=== PATIENT | female | born 1950 | race Caucasian/White ===

== ENCOUNTER 2021-07-25 10:22 | Day surgery (SDC) | payer MEDICARE, OTHER ==
[2021-07-16 16:00] LABS: BASOPHILS # (AUTO) 0.1 X10'3 (0-0.2); BASOPHILS % (AUTO) 0.9 % (0-1); EOSINOPHILS # (AUTO) 0.1 X10'3 (0-0.9); EOSINOPHILS % (AUTO) 2.4 % (0-6); LYMPHOCYTES # (AUTO) 1.3 X10'3 (1.1-4.8); LYMPHOCYTES % (AUTO) 21.6 % (21-51); MEAN CORPUSCULAR HEMOGLOBIN 33.4 PG (27.0-31.0); MEAN CORPUSCULAR HGB CONC 36.1 g/dL (33.0-36.5); MEAN CORPUSCULAR VOLUME 92.7 FL (78-98); MEAN PLATELET VOLUME 7.2 FL (7.4-10.4); MONOCYTES # (AUTO) 0.5 X10'3 (0-0.9); MONOCYTES % (AUTO) 9.1 % (2-12); NEUTROPHILS # (AUTO) 3.9 X10'3 (1.8-7.7); PRE OP HEMATOCRIT 31.7 % (35.0-45.0); PRE OP HEMOGLOBIN 11.4 g/dL (12.0-16.0); PRE OP PLATELET COUNT 268 X10'3 (140-440); RED BLOOD COUNT 3.42 X10'6 (4.20-5.60); RED CELL DISTRIBUTION WIDTH 12.5 % (11.5-14.5)
[2021-07-16 16:15] LABS: ALBUMIN 3.6 G/DL (3.4-5.0); ALBUMIN/GLOBULIN RATIO 0.9 (1.1-1.5); ALKALINE PHOSPHATASE 81 IU/L (46-116); BLOOD UREA NITROGEN 18 MG/DL (7-18); BUN/CREATININE RATIO 18.9 (6.6-38.0); CALCIUM 8.4 MG/DL (8.5-10.1); CHLORIDE 103 MMOL/L (99-107); CREATININE 0.95 MG/DL (0.40-0.90); PRE OP ALT 27 U/L (30-65); PRE OP ANION GAP 11 (8-16); PRE OP AST 18 U/L (10-37); PRE OP BILIRUB, TOTAL 0.4 MG/DL (0.0-1.0); PRE OP GLUCOSE 137 MG/DL (70-104); PRE OP SODIUM 137 MMOL/L (135-145); TOTAL CARBON DIOXIDE 23.5 MMOL/L (24-32); TOTAL PROTEIN 7.4 G/DL (6.4-8.2); eGFR 58 ML/MIN
[2021-07-16 16:53] LABS: PLATELET ESTIMATE NORMAL; SPHEROCYTES FEW
[2021-07-16 16:54] LABS: ELLIPTOCYTES FEW; SCHISTOCYTES FEW
[2021-07-16 16:55] LABS: LARGE PLATELETS FEW
[~2021-07-25] VITALS: Ht 165.1 cm; Wt 58.7 kg
[2021-07-25] VITALS (8 sets, daily range): BP systolic 120–140; BP diastolic 66–85
[~2021-07-25 10:22] MED LIST: PRAV20TA4 PO; cefazolin/dext.iso 2gm/50ml IV ONE; famotidine 20mg tablet PO ONE; ringers solution, lacted 1,000 ML IV SCH
[2021-07-25] MEDS ORDERED: bacitracin 15gm ointment TP ONE (14:36)
[2021-07-25] MEDS ORDERED: BUPIVAcaine/PF 2.5mg/ml (0.25%) 10ml vial ONE (14:36)
[2021-07-25] MEDS ORDERED: ondansetron/PF 4mg/2ml inj IV PRN (15:05)
[2021-07-25] MEDS ORDERED: ringers solution, lacted 1,000 ML IV SCH (15:05)
[2021-07-25] MEDS ORDERED: HYDROmorphone/PF 0.2 MG/ML SYRINGE IV PRN ×2 (15:05)
[2021-07-25] MEDS ORDERED: morphine 2 MG/ML inj. syringe IV PRN (15:05)
[2021-07-25] MEDS ORDERED: sevoflurane 250ml liquid IH ONE (15:09)
[2021-07-25] MEDS ORDERED: fentaNYL/PF 50MCG/1 ML 2ML syringe ONE (15:12)
[2021-07-25] MEDS ORDERED: dexamethasone sod phosphate 4mg/ml inj. ONE (15:30)
[2021-07-25] MEDS ORDERED: rocuronium 10mg/ml inj IV ONE (15:30)
[2021-07-25] MEDS ORDERED: LIDOcaine 2% (20mg/ml) 5ml vial ONE (15:30)
[2021-07-25] MEDS ORDERED: neostigmine methylsulfate 1 MG/ML 10ml vial ONE (15:30)
[2021-07-25] MEDS ORDERED: glycopyrrolate 0.2mg/ml inj ONE (15:30)
[2021-07-25] MEDS ORDERED: ondansetron/PF 4mg/2ml inj ONE (15:30)
[2021-07-25] MEDS ORDERED: acetaminophen 1,000mg/100ml IV 100 ML IV ONE (15:30)
[2021-07-25] MEDS ORDERED: propofol inj 20 ML IV ONE (15:30)
--- NOTE | 2021-07-25 16:44 | NUR ---
Received from OR via , accompanied by Anesthesiologist DR MABRY and report given by Anesthesiolgist. AWAKENS TO VOICE. VITALS STABLE. DRESSING DI. ZEUS PAIN. RT FOOT IN A SURGICAL BOOT.
--- NOTE | 2021-07-25 18:14 | NUR ---
AWAKE AND ORIENTED. VITALS STABLE. DRESSING DI. ZEUS PAIN. HOME WITH HER SPOUSE AT THIS TIME.
== END 2021-07-25 18:14 | disposition home or self-care (01) ==
LOC: PRE-OP 10:22 → PAS 18:14
PROVIDERS: ATTEND Podiatrist Foot & Ankle Surgery
DX: M20.31 Hallux varus (acquired), right foot (principal); M21.6X1 Other acquired deformities of right foot; M19.071 Primary osteoarthritis, right ankle and foot; Z79.82 Long term (current) use of aspirin; Z79.899 Other long term (current) drug therapy; Z98.890 Other specified postprocedural states; Z20.822 Contact with and (suspected) exposure to COVID-19; Z96.651 Presence of right artificial knee joint; Z87.440 Personal history of urinary (tract) infections
CPT/HCPCS: 28760; 36415; 73620; 76000; 80053; 82948; 85025; 93005; A6223; C1713; J0131; J0690; J1100; J2405; J2704; J2710; J3010; J3490; J7030; J7120; U0003; U0005; Z7506; Z7508; Z7512; 85008; A4215; A4618; A6449; A7000